=== PATIENT | female | born 1980 | race Caucasian/White ===

== ENCOUNTER 2017-02-10 05:43 | Emergency (ER) | payer MEDICAID ==
[2017-02-10 05:52] VITALS: TEMP 98
[2017-02-10] MEDS ORDERED: Sodium Chloride 0.9% 1,000 ML IV STA (05:58)
--- NOTE | 2017-02-10 06:07 | C.PDOC ---
History Of Present Illness Patient is a 36 year old female who presents to the ER with a complaint of a headache for the past week. Patient states she usually has headaches but not as bad. Patient reports having nausea and vomiting several times. Denies any fever or upper respiratory symptoms. Time Seen by Provider: 02/10/17 05:53 Chief Complaint (Nursing): Headache History Per: Patient History/Exam Limitations: no limitations Onset/Duration Of Symptoms: Days (7) Current Symptoms Are (Timing): Still Present Associated Symptoms: Nausea, Vomiting (Several episodes) Past Medical History Reviewed: Historical Data, Nursing Documentation, Vital Signs Vital Signs: Last Vital Signs Temp 98 F 02/10/17 05:49 Pulse 84 02/10/17 05:49 Resp 14 02/10/17 05:49 BP 116/78 02/10/17 05:49 Pulse Ox 98 02/10/17 06:43 - Medical History PMH: No Chronic Diseases, Gastritis Surgical History: No Surg Hx Family History: States: Unknown Family Hx - Social History Hx Tobacco Use: No Hx Alcohol Use: No Hx Substance Use: No - Immunization History Hx Tetanus Toxoid Vaccination: No Hx Influenza Vaccination: No Hx Pneumococcal Vaccination: No Review Of Systems Except As Marked, All Systems Reviewed And Found Negative. Constitutional: Negative for: Fever, Chills Respiratory: Negative for: Cough, Shortness of Breath Gastrointestinal: Positive for: Nausea, Vomiting (Several episodes). Negative for: Diarrhea Physical Exam - Physical Exam Appears: Well, Non-toxic Skin: Normal Color, Warm, Dry Head: Atraumatic, Normacephalic Oral Mucosa: Moist Neck: Normal, Supple Chest: Symmetrical Cardiovascular: Rhythm Regular, No Murmur Respiratory: Normal Breath Sounds, No Rales, No Rhonchi, No Wheezing Gastrointestinal/Abdominal: Soft, No Tenderness Neurological/Psych: Oriented x3, Normal Speech, Normal Cognition, Normal Motor, Normal Sensation, Other (No neuro deficit.) ED Course And Treatment O2 Sat by Pulse Oximetry: 98 (Room air) Pulse Ox Interpretation: Normal Progress Note: POC test ordered. Morphine IVP, reglan IV, and IV fluids administered. Head CT ordered. Disposition - Disposition Disposition Time: 07:00 Condition: FAIR - Clinical Impression Clinical Impression: Headache - Scribe Statement The provider has reviewed the documentation as recorded by the Scribe Jose Read All medical record entries made by the Scribe were at my direction and personally dictated by me. I have reviewed the chart and agree that the record accurately reflects my personal performance of the history, physical exam, medical decision making, and the department course for this patient. I have also personally directed, reviewed, and agree with the discharge instructions and disposition. Physician Patient Turnover Patient Signed Over To: Edith Rodrigez Handoff Comments: re-evaluation/CT head result
[2017-02-10] MEDS ORDERED: Sodium Chloride 0.9% 1,000 ML ONE (06:35)
[2017-02-10] MEDS ORDERED: Morphine 4 MG/ML VIAL ONE (06:35)
--- NOTE | 2017-02-10 09:33 | CT ---
PROCEDURE: CT HEAD WITHOUT CONTRAST. HISTORY: atraumatic posterior LACY with nausea/vomiting x 1 w COMPARISON: None available. TECHNIQUE: Axial computed tomography images were obtained through the head/brain without intravenous contrast. Radiation dose: Total exam DLP = 688.71 mGy-cm. This CT exam was performed using one or more of the following dose reduction techniques: Automated exposure control, adjustment of the mA and/or kV according to patient size, and/or use of iterative reconstruction technique. FINDINGS: HEMORRHAGE: No intracranial hemorrhage. BRAIN: No mass effect or edema. No atrophy or chronic microvascular ischemic changes. VENTRICLES: No hydrocephalus. CALVARIUM: Unremarkable. PARANASAL SINUSES: Unremarkable as visualized. No significant inflammatory changes. MASTOID AIR CELLS: Unremarkable as visualized. No inflammatory changes. OTHER FINDINGS: None. IMPRESSION: No acute intracranial pathology identified.
[2017-02-10 10:07] VITALS: BP 98/63; PULSE 64; RESP 17; O2SAT 100
== END 2017-02-10 10:08 | disposition home or self-care (01) ==
LOC: C.ER 05:43
DX: R51 Headache (principal); S16.1XXA Strain of muscle, fascia and tendon at neck level, initial encounter; X58.XXXA Exposure to other specified factors, initial encounter; M62.838 Other muscle spasm
CPT/HCPCS: 70450; 96374; 96375; 99285; J2270; J2765; J7040

== ENCOUNTER 2018-05-07 12:43 | Emergency (ER) | payer MEDICAID ==
[2018-05-07] MEDS ORDERED: Sodium Chloride 0.9% 1,000 ML IV ONE (13:48)
--- NOTE | 2018-05-07 13:52 | C.PDOC ---
History Of Present Illness 38-year-old female presents to the ER for evaluation of diarrhea, daily for the last week. Patient reports having 3-4 episodes of non-bloody, non-mucoid diarrhea per day. No associated fever, chills, abdominal pain, vomiting, nausea , or other complaints. No recent travel. No sick contacts. Time Seen by Provider: 05/07/18 13:41 Chief Complaint (Nursing): Abdominal Pain History Per: Patient History/Exam Limitations: no limitations Onset/Duration Of Symptoms: Days Current Symptoms Are (Timing): Still Present Past Medical History Reviewed: Historical Data, Nursing Documentation, Vital Signs Vital Signs: Last Vital Signs Temp 98.1 F 05/07/18 12:56 Pulse 74 05/07/18 12:56 Resp 18 05/07/18 12:56 BP 111/74 05/07/18 12:56 Pulse Ox 99 05/07/18 13:55 - Medical History PMH: Gastritis Surgical History: No Surg Hx Family History: States: Unknown Family Hx - Social History Hx Tobacco Use: No Hx Alcohol Use: No Hx Substance Use: No - Immunization History Hx Tetanus Toxoid Vaccination: No Hx Influenza Vaccination: No Hx Pneumococcal Vaccination: No Review Of Systems Except As Marked, All Systems Reviewed And Found Negative. Constitutional: Negative for: Fever, Chills Gastrointestinal: Positive for: Diarrhea. Negative for: Nausea, Vomiting, Abdominal Pain, Hematochezia Physical Exam - Physical Exam Appears: Non-toxic, No Acute Distress Skin: Normal Color, Warm, Dry Head: Atraumatic, Normacephalic Eye(s): bilateral: Normal Inspection, PERRL, EOMI Nose: Normal Oral Mucosa: Moist Neck: Normal ROM, Supple Chest: Symmetrical Cardiovascular: Rhythm Regular, No Murmur Respiratory: Normal Breath Sounds, No Rales, No Rhonchi, No Wheezing Gastrointestinal/Abdominal: Soft, No Tenderness, No Distention, No Guarding Back: Normal Inspection Extremity: Bilateral: Atraumatic, Normal Color And Temperature, Normal ROM Pulses: Left Dorsalis Pedis: Normal, Right Dorsalis Pedis: Normal Neurological/Psych: Oriented x3, Normal Speech ED Course And Treatment - Laboratory Results Result Diagrams: 05/07/18 14:03 05/07/18 14:49 Lab Interpretation: No Acute Changes O2 Sat by Pulse Oximetry: 99 (RA) Pulse Ox Interpretation: Normal Reevaluation Time: 16:08 Reassessment Condition: Improved (after IV fluids.) Medical Decision Making Medical Decision Making: Initial Impression: 38 y/o female with diarrhea Time: 13:48 Initial Plan: --Blood work --Urinalysis --Stool culture --IV fluids Disposition Counseled Patient/Family Regarding: Studies Performed, Diagnosis, Need For Followup - Disposition Referrals: [facility] [Outside] Disposition: HOME/ ROUTINE Disposition Time: 16:08 Condition: STABLE Instructions: Diarrhea in Adolescents and Adults, [place] Diet Forms: [employer] (Nigerien) - Clinical Impression Clinical Impression: Diarrhea - Scribe Statement The provider has reviewed the documentation as recorded by the Oral Ramachandran Provider Attestation: All medical record entries made by the Oral were at my direction and personally dictated by me. I have reviewed the chart and agree that the record accurately reflects my personal performance of the history, physical exam, medical decision making, and the department course for this patient. I have also personally directed, reviewed, and agree with the discharge instructions and disposition.
[2018-05-07] MEDS ORDERED: Sodium Chloride 0.9% 1,000 ML ONE (14:03)
[2018-05-07 14:11] LABS: HEMOGLOBIN 13.3 g/dL (11.0-16.0); MEAN CELL VOLUME 90.4 fL (81.0-99.0); MEAN CORPUSCULAR HGB CONC 34.3 g/dL (33.0-37.0); RBC 4.28 Mil/uL (3.80-5.20); WHITE BLOOD COUNT 8.6 K/uL (4.8-10.8)
[2018-05-07 14:12] LABS: BASO % 0.5 % (0.0-2.0); EOS # 0.8 K/uL (0.0-0.7); EOS % 9.5 % (0.0-4.0); LYMPH # 2.5 K/uL (1.0-4.3); LYMPH % 28.7 % (20.0-40.0); MONO # 0.8 K/uL (0.0-0.8); MONO % 9.6 % (0.0-10.0); NEUT # 4.4 K/uL (1.8-7.0); NEUT % 51.7 % (50.0-75.0); NRBC % 0.1 % (0.0-2.0); RED CELL DISTRIBUTION WIDTH 13.2 % (11.5-14.5)
[2018-05-07 14:33] LABS: SQUAMOUS EPITHIAL 5 /hpf (0-5); URINE BILIRUBIN NEGATIVE (NEGATIVE); URINE BLOOD NEGATIVE (NEGATIVE); URINE CLARITY Hazy (Clear); URINE COLOR Amber (YELLOW); URINE GLUCOSE (UA) NORMAL (Normal); URINE LEUKOCYTE ESTERASE NEG Leu/uL (Negative); URINE PROTEIN 1+ mg/dL (NEGATIVE)
[2018-05-07 15:08] LABS: ALB/GLOB RATIO 1.5 (1.0-2.1); ALBUMIN 4.1 g/dL (3.5-5.0); ALT/SGPT 99 U/L (9-52); AST/SGOT 63 U/L (14-36); BLOOD UREA NITROGEN 8 mg/dL (7-17); CALCIUM 7.9 mg/dl (8.6-10.4); GFR AFRICAN-AMERICAN > 60; GFR NON-AFRICAN AMERICAN > 60; LIPASE 116 U/L (23-300)
[2018-05-07 16:25] VITALS: BP 101/67; PULSE 70; RESP 20; TEMP 98; O2SAT 100
== END 2018-05-07 16:24 | disposition home or self-care (01) ==
LOC: C.ER 12:43
DX: R19.7 Diarrhea, unspecified (principal)
CPT/HCPCS: 80053; 81001; 83690; 85025; 99284; J7030

== ENCOUNTER 2018-12-25 12:29 | Emergency (ER) | payer MEDICAID ==
[2018-12-25 12:36] VITALS: TEMP 98.2
--- NOTE | 2018-12-25 13:43 | C.PDOC ---
History Of Present Illness 38 year old female presents to ED with complaint of parethesia in both her hands. Patient states that it has woken her up from her sleep multiple times a night. Patient has a PMHx of carpal tunnel syndrome bilaterally, but refuses to wear her brace. Patient states that her wrists feel swollen. 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 Patient states that she does no heavy lifting or moving as part of her job. Patient has a referral for a Neurology appointment at the the end of December, but says it can't wait. Patient denies weakness and trauma. Time Seen by Provider: 12/25/18 13:28 Chief Complaint (Nursing): Upper Extremity Problem/Injury History Per: Patient History/Exam Limitations: no limitations Onset/Duration Of Symptoms: Persistent, Unknown Current Symptoms Are (Timing): Still Present Exacerbating Factor(s): Nothing Past Medical History Reviewed: Historical Data, Nursing Documentation, Vital Signs Vital Signs: Last Vital Signs Temp 98.2 F 12/25/18 12:32 Pulse 74 12/25/18 12:32 Resp 16 12/25/18 12:32 BP 121/80 12/25/18 12:32 Pulse Ox 99 12/25/18 12:32 - Medical History PMH: Gastritis Surgical History: No Surg Hx Family History: States: Unknown Family Hx - Social History Hx Tobacco Use: No Hx Alcohol Use: No Hx Substance Use: No - Immunization History Hx Tetanus Toxoid Vaccination: No Hx Influenza Vaccination: Yes Hx Pneumococcal Vaccination: No Review Of Systems Constitutional: Negative for: Fever, Chills, Weakness Musculoskeletal: Positive for: Other (wrist swelling) Skin: Positive for: Rash Neurological: Positive for: Numbness. Negative for: Weakness, Headache, Dizziness Physical Exam - Physical Exam Appears: Other (anxious, pressured speech) Skin: Normal Color, Warm, Dry Head: Atraumatic, Normacephalic Neck: Normal ROM, Supple Chest: Symmetrical, No Deformity Cardiovascular: Rhythm Regular, No Murmur Respiratory: No Accessory Muscle Use Gastrointestinal/Abdominal: Soft, No Tenderness Extremity: Other (Phalen's sign) Extremity: Bilateral: Atraumatic, Normal Color And Temperature Pulses: Left Radial: Normal, Right Radial: Normal Neurological/Psych: Oriented x3, Normal Speech, Normal Cognition ED Course And Treatment O2 Sat by Pulse Oximetry: 99 (RA) Progress Note: Discussed results and plan with patient who expresses understanding. All questions answered and there is agreement with the plan to discharge home with instructions. Patient stable for discharge. Return if symptoms persist or worsen. 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) Refer to Hand Ortho as well opt studies Disposition Doctor Will See Patient In The: Office Counseled Patient/Family Regarding: Studies Performed, Diagnosis - Disposition Referrals: [facility] [Outside] [facility] [Outside] [facility] [Outside] [facility] [Outside] Vamshi Buck MD [Staff Provider] - Disposition: HOME/ ROUTINE Disposition Time: 13:42 Condition: GOOD Additional Instructions: please wear wrist splints every night follow-up with Neuro/Hand specialist as needed Instructions: Carpal Tunnel Syndrome Forms: [facility] ([place]) - Clinical Impression Clinical Impression: Paresthesia of hand, bilateral - Scribe Statement The provider has reviewed the documentation as recorded by the Scribe (Libra Briceño) All medical record entries made by the Scribe were at my direction and personally dictated by me. I have reviewed the chart and agree that the record accurately reflects my personal performance of the history, physical exam, medical decision making, and the department course for this patient. I have also personally directed, reviewed, and agree with the discharge instructions and disposition.
[2018-12-25 14:09] VITALS: BP 122/76; PULSE 84; RESP 19
[2018-12-25 14:29] VITALS: O2SAT 99
== END 2018-12-25 14:08 | disposition home or self-care (01) ==
LOC: C.ER 12:29
DX: R20.2 Paresthesia of skin (principal)

== ENCOUNTER 2019-01-22 16:12 | Emergency (ER) | payer MEDICAID ==
[2019-01-22 16:40] VITALS: O2SAT 98
--- NOTE | 2019-01-22 17:46 | C.PDOC ---
History Of Present Illness 38 y/o female on depo, with next shoe due on 01/29, has appt with post splitter. c/o prolonged menses with heavier than usual bleeding and passage of clots. pt had changed pads every half hour the other day, and yesterday used 5 pads. npo cheds t pain or sob, +mild fatigue Time Seen by Provider: 01/22/19 17:00 Chief Complaint (Nursing): Female Genitourinary History Per: Patient History/Exam Limitations: no limitations Associated Symptoms: denies: Chest Pain Recent travel outside of the [place]: No Additional History Per: Patient Abnormal Vaginal Bleeding: Yes Past Medical History Reviewed: Historical Data, Nursing Documentation, Vital Signs Vital Signs: Last Vital Signs Temp 98.5 F 01/22/19 16:38 Pulse 92 H 01/22/19 16:38 Resp 16 01/22/19 16:38 BP 105/75 01/22/19 17:38 Pulse Ox 98 01/22/19 16:38 - Medical History PMH: Gastritis Surgical History: No Surg Hx Family History: States: Unknown Family Hx - Social History Hx Tobacco Use: No Hx Alcohol Use: No Hx Substance Use: No - Immunization History Hx Tetanus Toxoid Vaccination: No Hx Influenza Vaccination: Yes Hx Pneumococcal Vaccination: No Review Of Systems Constitutional: Positive for: Malaise (mild) Cardiovascular: Negative for: Chest Pain Respiratory: Negative for: Shortness of Breath Genitourinary: Positive for: Vaginal Bleeding (heavier than usual bleeding with passage of clots ) Physical Exam - Physical Exam Appears: Non-toxic, No Acute Distress Skin: Warm, Dry Head: Atraumatic, Normacephalic Eye(s): bilateral: Conjunctiva Pale Oral Mucosa: Moist Neck: Supple Chest: Symmetrical, No Deformity Cardiovascular: Rhythm Regular, No Murmur Respiratory: Normal Breath Sounds, No Rales, No Rhonchi, No Wheezing Gastrointestinal/Abdominal: Bowel Sounds (normal), Soft, No Tenderness Neurological/Psych: Oriented x3, Other (alert) ED Course And Treatment - Laboratory Results Result Diagrams: 01/22/19 18:21 O2 Sat by Pulse Oximetry: 98 (on RA) Medical Decision Making Medical Decision Making: Plan: Labs POC Urine Urinalysis pt with heavy vaginal bleeding; not , not anemia. will d/c with iro and pt has f/u with post splitter for next week. Disposition Counseled Patient/Family Regarding: Studies Performed, Diagnosis, Need For Followup, Rx Given - Disposition Disposition: HOME/ ROUTINE Disposition Time: 18:31 Condition: GOOD Additional Instructions: Please follow up with your hearing and speech assistant next week as scheduled. Take Iron 1-2 times a day and eat leafy green vegetables, and lean meats. Iron sometimes makes you constipated, so drink lots of water and fiber. Return to ER for any worse symptoms. Prescriptions: Ferrous Sulfate 325 mg PO DAILY #30 tablet Instructions: Heavy Periods (DC) Forms: [employer] ([email or web address]) [employer] (Tristanian), General Discharge Instructions - Clinical Impression Clinical Impression: Menorrhagia - Scribe Statement The provider has reviewed the documentation as recorded by the Elvaibnithya Wall All medical record entries made by the Elvaibnithya were at my direction and personally dictated by me. I have reviewed the chart and agree that the record accurately reflects my personal performance of the history, physical exam, medical decision making, and the department course for this patient. I have also personally directed, reviewed, and agree with the discharge instructions and disposition.
[2019-01-22 18:00] LABS: SQUAMOUS EPITHIAL 2 /hpf (0-5); URINE BILIRUBIN NEGATIVE (NEGATIVE); URINE BLOOD 3+ (NEGATIVE); URINE CLARITY Hazy (Clear); URINE COLOR Yellow (YELLOW); URINE GLUCOSE (UA) NORMAL (Normal); URINE LEUKOCYTE ESTERASE NEG Leu/uL (Negative); URINE PROTEIN NEGATIVE (NEGATIVE)
[2019-01-22 18:26] LABS: BASO # 0.1 K/uL (0.0-0.2); BASO % 0.5 % (0.0-2.0); EOS # 0.6 K/uL (0.0-0.7); EOS % 5.5 % (0.0-4.0); LYMPH # 3.9 K/uL (1.0-4.3); LYMPH % 37.4 % (20.0-40.0); MEAN CORPUSCULAR HEMOGLOBIN 30.4 pg (27.0-31.0); MEAN PLATELET VOLUME 8.1 fL (7.2-11.7); MONO # 0.6 K/uL (0.0-0.8); MONO % 5.7 % (0.0-10.0); NEUT # 5.3 K/uL (1.8-7.0); NEUT % 50.9 % (50.0-75.0); RBC 3.63 Mil/uL (3.80-5.20); RED CELL DISTRIBUTION WIDTH 13.5 % (11.5-14.5); WHITE BLOOD COUNT 10.4 K/uL (4.8-10.8)
[2019-01-22 18:55] VITALS: BP 114/72; PULSE 88; RESP 17; TEMP 98.4
== END 2019-01-22 18:55 | disposition home or self-care (01) ==
LOC: C.ER 16:12
DX: N92.0 Excessive and frequent menstruation with regular cycle (principal)